=== PATIENT | male | born 1950 | race Caucasian/White ===

== ENCOUNTER 2016-07-16 10:47 | Emergency (ER) | payer BC ==
[2016-07-16 11:02] VITALS: BP 136/65; BMI 32.3
[2016-07-16] MEDS ORDERED: DILAUDID INJ ONE (11:22)
[2016-07-16] MEDS ORDERED: DILAUDID INJ IM ONE (11:22)
[2016-07-16 12:04] LABS: BASOPHILS # (AUTO) 0.1 X10^3/uL (0.0-0.1); BASOPHILS % (AUTO) 0.5 % (0.2-1.0); BLOOD UREA NITROGEN 29 mg/dL (7-18); CALCIUM 8.8 mg/dL (8.5-10.1); CARBON DIOXIDE 28.5 mmol/L (21-32); CHLORIDE 106 mmol/L (98-107); CREATININE 1.87 mg/dL (0.70-1.30); EOSINOPHILS % (AUTO) 0.3 % (0.9-2.9); GLUCOSE 100 mg/dL (65-99); HEMATOCRIT 40.8 % (42.0-54.0); HEMOGLOBIN 13.3 g/dL (13.5-18.0); LYMPHOCYTES # (AUTO) 0.7 X10^3/uL (1.3-2.9); MEAN CORPUSCULAR HEMOGLOBIN 28.1 pg (27.0-34.0); MEAN CORPUSCULAR HGB CONC 32.6 g/dL (33.0-35.0); MEAN CORPUSCULAR VOLUME 86.3 fL (80.0-100.0); MEAN PLATELET VOLUME 9.4 fL (7.4-11.0); MONOCYTES # (AUTO) 1.1 x10^3/uL (0.3-0.8); MONOCYTES % (AUTO) 9.4 % (0.0-13.0); NEUTROPHILS # (AUTO) 10.1 x10^3/uL (2.2-4.8); NEUTROPHILS % (AUTO) 83.8 % (42.0-75.0); PLATELET COUNT 130 X10^3/uL (150.0-450.0); RED BLOOD COUNT 4.73 X10^6/uL (4.7-6.0); RED CELL DISTRIBUTION WIDTH 17.5 % (11.6-16.5); SODIUM 145 mmol/L (136-145); eGFR BLACK RACES 47 (>60); eGFR NON BLACK RACES 39 (>60)
--- NOTE | 2016-07-16 12:06 | DR.GENAD ---
HPI - PCP Primary Care Physician: CONNOR AMIN - Complaint/Symptoms Chief Complaint Doctors Comments: Patient presents with history as stated but knee pain has been ongoing for weeks has a history of gouty arthritis of bilateral knees. He is scheduled to have nerve conduction test next due to inability to ambulate. Chief Complaint:: PT BROUGT IN BY EMS WITH C/O BILATERAL KNEE , AND BACK PAIN THAT STARTED YESTERDAY .. Self Treatment fo Chief Complaint: TYLENOL - Source History Provided: Patient - Mode of Arrival Mode of Arrival: EMS - Timing Onset of Chief Complaint: 07/15/16 PMH - PMH Past Medical History: Yes Past Medical History Comment: AFIB, PR, Past Surgical History: Yes Surgical History: Angioplasty/Stents - Family History History of Family Medical Conditions: No - Social History Does patient currently use any type of tobacco product: No Have you used tobacco products in the last 12 months: No Type of Tobacco Use: None Does any household member use tobacco: No Alcohol Use: None Do you use any recreational Drugs:: No Lives With: Family Lives Where: Home - infectious screening In the last 2 months have you had wt loss of >10#?: NO Have you had fever, night sweats or hemotysis?: No Have you traveled outside the country in the last 6 months?: No Isolation: Standard ROS - Review of Systems Constitutional: No Symptoms Reported Eyes: No Symptoms Reported ENTM: No Symptoms Reported Respiratoy: No Symptoms Reported Cardiovascular: No Symptoms Reported Gastrointestinal/Abdominal: No Symptoms Reported Genitourinary: No Symptoms Reported Neurological: Problems Walking (due to arthritis) Musculoskeletal: Back, Knee Integumentary: No Symptoms Reported Hematologic/Lymphatic: No Symptoms Reported Endocrine: No Symptoms Reported Psychiatric: No Symptoms Reported All Other Systems: Reviewed and Negative PE - Vital Signs Vitals: Temperature 97.8 F Pulse Rate 73 Respiratory Rate 20 Blood Pressure 136/65 O2 Sat by Pulse Oximetry 93 - General Limitations: No Limitations General Appearance: Alert, In No Apparent Distress - Head Head Exam: Normal Inspection, Atraumatic - Eyes Eye exam: Normal Appearance, PERRL, EOMI - ENT ENT Exam: Normal Exam External Ear Exam: Normal External Inspection TM/Canal Exam: Bilateral Normal Nose Exam: Normal Nose Exam Mouth Exam: Normal Inspection Throat Exam: Normal Inspection - Neck Neck Exam: Normal Inspection - Chest Chest Inspection: Normal Inspection - Respiratory Respiratory Exam: Normal Lung Sounds Bilat Respiratory Exam: Bilateral Clear to Auscultation - Cardiovascular Cardiovascular Exam: Regular Rate, Normal Rhythm - Abdominal Exam Abdominal Exam: Normal Inspection Abdominal Tenderness: negative: RUQ, RLQ, LUQ, LLQ, Epigastrium, Suprapubic, Diffuse, Mild, Moderate, Severe, Other - Extremities Extremities Exam: Normal Inspection, Full ROM - Back Back Exam: Normal Inspection, Tenderness (lumbar area) - Neurologic Neurological Exam: Alert, Oriented X3, CN II-XII Intact - Psychiatric Psychiatric Exam: Normal Affect - Skin Skin Exam: Warm, Dry, Intact Course - Reevaluation 1st: Improved ROR - Labs Reviewed Laboratory Results Reviewed?: Yes (bun elevated, creatinin elevated) Result Diagrams: 07/16/16 11:50 07/16/16 11:50 Laboratory: WBC 12.0 X10^3/uL (3.6-10.0) H 07/16/16 11:50 RBC 4.73 X10^6/uL (4.7-6.0) 07/16/16 11:50 Hgb 13.3 g/dL (13.5-18.0) L 07/16/16 11:50 Hct 40.8 % (42.0-54.0) L 07/16/16 11:50 MCV 86.3 fL (80.0-100.0) 07/16/16 11:50 MCH 28.1 pg (27.0-34.0) 07/16/16 11:50 MCHC 32.6 g/dL (33.0-35.0) L 07/16/16 11:50 RDW 17.5 % (11.6-16.5) H 07/16/16 11:50 Plt Count 130 X10^3/uL (150.0-450.0) L 07/16/16 11:50 MPV 9.4 fL (7.4-11.0) 07/16/16 11:50 Neut % 83.8 % (42.0-75.0) H 07/16/16 11:50 Lymph % 6.0 % (21.0-51.0) L 07/16/16 11:50 [place] % 9.4 % (0.0-13.0) 07/16/16 11:50 Eos % 0.3 % (0.9-2.9) L 07/16/16 11:50 Baso % 0.5 % (0.2-1.0) 07/16/16 11:50 Neut # 10.1 x10^3/uL (2.2-4.8) H 07/16/16 11:50 Lymph # 0.7 X10^3/uL (1.3-2.9) L 07/16/16 11:50 [place] # 1.1 x10^3/uL (0.3-0.8) H 07/16/16 11:50 Eos # 0.0 x10^3/uL (0.0-0.2) 07/16/16 11:50 Baso # 0.1 X10^3/uL (0.0-0.1) 07/16/16 11:50 Absolute Nucleated RBC 0.0 /100WBC 07/16/16 11:50 Sodium 145 mmol/L (136-145) 07/16/16 11:50 Corrected Sodium TNP 07/16/16 11:50 Potassium 3.5 mmol/L (3.5-5.1) 07/16/16 11:50 Chloride 106 mmol/L (98-107) 07/16/16 11:50 Carbon Dioxide 28.5 mmol/L (21-32) 07/16/16 11:50 BUN 29 mg/dL (7-18) H 07/16/16 11:50 Creatinine 1.87 mg/dL (0.70-1.30) H 07/16/16 11:50 Est GFR (MDRD) Af Amer 47 (>60) L 07/16/16 11:50 Est GFR (MDRD) Non-Af 39 (>60) L 07/16/16 11:50 Glucose 100 mg/dL (65-99) H 07/16/16 11:50 Calcium 8.8 mg/dL (8.5-10.1) 07/16/16 11:50 - XRAY XRAY Interpreted by: Radiologist (Bilateral Knees: no abnormality noted) - Diagnosis Discharge Problem: Arthralgia of ankle Qualifiers: Laterality: bilateral Qualified Code(s): M25.571 - Pain in right ankle and joints of right foot - Discharge Plan Condition: Stable - Follow ups/Referrals Follow ups/Referrals: SHILO RYAN [Primary Care Provider] - 3 days - Instructions
--- NOTE | 2016-07-16 12:48 | RAD ---
HISTORY: Bilateral knee pain Study: Two views right knee Comparison: None available Findings: No evidence for acute cortical disruption or dislocation. The medial and lateral tibiofemoral jory rtments appear unremarkable without loss of significant joint space. The lateral radiograph fails t o demonstrate significant joint effusion. Patellofemoral compartment is normal in its appearance. IMPRESSION: 1. Negative exam. Reported By:
--- NOTE | 2016-07-16 12:49 | RAD ---
HISTORY: Knee pain Study: Two views right knee Comparison: None available Findings: No evidence for acute cortical disruption or dislocation. The medial and lateral tibiofemoral jory rtments appear unremarkable without loss of significant joint space. The lateral radiograph fails t o demonstrate significant joint effusion. Patellofemoral compartment is normal in its appearance. IMPRESSION: 1. Negative exam. Reported By:
[2016-07-16] MEDS ORDERED: NS 1000 ML 1,000 ML IV SCH (13:00)
== END 2016-07-16 13:05 | disposition home or self-care (01) ==
LOC: ER 10:55
DX: M25.571 Pain in right ankle and joints of right foot (principal)
CPT/HCPCS: 36415; 73560; 80048; 85025; 96372; 99283

== ENCOUNTER → 2016-07-20 | Outpatient (CLI) | payer BC ==
[2016-07-16 11:02] VITALS: BP 136/65
== END ==
LOC: RT 14:44
PROVIDERS: ATTEND Psychiatry & Neurology Neurology
DX: G56.03 Carpal tunnel syndrome, bilateral upper limbs (principal)
CPT/HCPCS: 95911

== ENCOUNTER 2017-05-29 07:26 | Day surgery (SDC) | payer OTHER ==
[2017-05-29] MEDS ORDERED: NS 500 ML IV 500 ML IV ONE (07:51)
[2017-05-29] MEDS ORDERED: TETRACAINE 0.5% OPHTH 1 DOSE AFFEYE ONE ×5 (08:00→10:55)
[2017-05-29] MEDS ORDERED: VIGAMOX 0.5% OPHTH 1 DOSE AFFEYE ONE ×5 (08:05→11:09)
[2017-05-29] MEDS ORDERED: PROLENSA OPHTH 1 DOSE AFFEYE ONE (08:16)
[2017-05-29] MEDS ORDERED: ALPHAGAN-P OPHTH 1 DOSE AFFEYE ONE (08:17)
[2017-05-29] MEDS ORDERED: AK-DILATE 2.5% OPHTH 1 DOSE OP ONE ×3 (08:18→08:20)
[2017-05-29] MEDS ORDERED: CYCLOGYL 1% OPHTH 1 DOSE OP ONE ×3 (08:18→08:20)
[2017-05-29] MEDS ORDERED: MYDRIACIL OPHTH 1 DOSE AFFEYE ONE ×3 (08:18→08:20)
[2017-05-29] MEDS ORDERED: BETADINE OPHTH SOLN 5% EACHEYE ONE (10:35)
[2017-05-29] MEDS ORDERED: ADRENALINE CHL INJ IJ ONE ×3 (10:38→10:55)
[2017-05-29] MEDS ORDERED: XYLOCAINE-MPF 1% IJ ONE ×3 (10:38→10:55)
[2017-05-29] MEDS ORDERED: BSS OPHTH (PLAIN) 500 ML with VANCOMYCIN HCL 500 MG VIAL 25 MG, ADRENALINE CHL INJ 1 MG IR ONE ×6 (10:39)
[2017-05-29] MEDS ORDERED: DUOVISC IO ONE ×3 (10:39→10:55)
[2017-05-29 11:29] VITALS: BP 151/88
== END 2017-05-29 11:30 | disposition home or self-care (01) ==
LOC: SURG1 07:26
PROVIDERS: ATTEND Ophthalmology
PROC: 08DJ3ZZ Extraction of Right Lens, Percutaneous Approach (ICD-10-PCS; principal; 2017-05-29 11:15)
PROC: 08RJ3JZ Replacement of Right Lens with Synthetic Substitute, Percutaneous Approach (ICD-10-PCS; principal; 2017-05-29 11:15)
DX: H25.11 Age-related nuclear cataract, right eye (principal)
CPT/HCPCS: A4217; J0170; J3370